=== PATIENT | female | born 1985 | race Caucasian/White ===

== ENCOUNTER 2023-07-02 09:41 | Emergency (ER) | payer OTHER, SELFPAY ==
[2023-07-02 09:49] VITALS: BP 111/91; PULSE 99; TEMP 36.4; O2SAT 98; BMI 23.5
--- NOTE | 2023-07-02 10:04 | CT_ITS ---
The [address] [address] Patient Name: DAMARIS REEVES MRN: [id number] date: 1985 Sex: F Assigned Patient Location: ED.MAIN Current Patient Location: Accession/Order Number: [id number] Exam Date: 07/02/2023 11:31 Report Date: 07/02/2023 11:51 At the request of: PAZ OKEEFE Procedure: CT head/brain wo con EXAM: CT head/brain wo con HISTORY: vertigo COMPARISON: None. TECHNIQUE: Axial noncontrast CT imaging of the head was performed with coronal and sagittal reformats. This CT exam was performed using one or more of the following dose reduction techniques: Automated exposure control, adjustment of the MA and/or kV according to patient size, or use of iterative reconstruction technique. FINDINGS: Calvarium/skull base: No evidence of acute fracture or destructive lesion. Mastoids and middle ears demonstrate no substantial mucosal disease. Paranasal sinuses: No air fluid levels. Brain: No acute intracranial hemorrhage. No acute large vascular territory infarct. No mass lesion or mass effect. No hydrocephalus. CT/CT head/brain wo con IMPRESSION: No acute intracranial process. Electronically authenticated by: SHADI GRUBER Date: 07/02/2023 11:51
[2023-07-02] MEDS: MECLIZINE HCL 12.5 MG TABLET 25 MG PO (10:21)
--- NOTE | 2023-07-02 10:21 | ED.GENADUL1 ---
HPI HPI - General Adult General Chief complaint: Dizziness Stated complaint: Dizziness VERTIGO Time Seen by Provider: 07/02/23 09:49 Source: patient Mode of arrival: walk-in Limitations: no limitations History of Present Illness HPI narrative: The patient presented to the ER complaining of almost 5 days history of having symptoms of dizziness whenever she turns her head to the left side, she mentioned that she did not have any recent illness but her had some viral illness recently, she denies any ear pain runny nose coughing or sneezing, she was able to function with no difficulty for the last few days but today she has been feeling the dizziness is more than usual. She noted also that she had more bleeding in her menstruation this month and she was worried maybe that is affecting her symptoms. The patient denies any other complaint of weakness numbness tingling headache or any other concerns. Although the patient mentioned that she did had earlier headache in the occipital area Related Data Previous Rx's ?Medication ?Instructions ?Recorded meclizine 25 mg tablet 25 mg PO TID PRN motion sickness 07/02/23 #20 tabs Allergies Allergy/AdvReac Type Severity Reaction Status Date / Time No Known Drug Allergies Allergy Verified 07/02/23 09:49 Opioid HPI Opioid Management Most Recent Opioid Data: No Data to Display Review of Systems ROS Status of ROS 10 or more systems reviewed and unremarkable except as noted in history and below Exam Narrative Exam Narrative: Nurses notes and vital signs reviewed and patient is not hypoxic. General: Well-appearing and in no apparent distress. Skin: Warm, dry, no pallor noted. No rash. Head: Normocephalic, atraumatic. Neck: Supple, non-tender. Eye: Pupils are equal, round and EOMI. No scleral icterus. Ears, Nose, Mouth, and Throat: TM are clear, no nasal mucosal hypertrophy. Oral mucosa is moist, no posterior oropharynx erythema, uvula is mid-line Cardiovascular: Regular Rate and Rhythm without murmur, gallop or rub. Respiratory: No accessory muscle use or respiratory distress. Lungs are clear to auscultation, no wheezing, rales or rhonchi Chest Wall: no tenderness Back: No midline thoracic or lumbar vertebral tenderness. No CVA tenderness Musculoskeletal: normal ROM, no calf or popliteal tenderness, no lower extremity edema/swelling GI: Abdomen is soft, non-distended. Normal bowel sounds. No masses appreciated. No tenderness to palpation. No rebound, guarding, or rigidity noted. Neurological: A&O x4. No cranial nerve dysfunction observed. No truncal ataxia. Moves all extremities. Sensation intact. Psychiatric: Cooperative and interactive. Normal mood and affect. Constitutional Vital Signs, click to edit/add: Last Vital Signs Temp 97.6 F 07/02/23 09:49 Pulse 99 H 07/02/23 09:49 Resp 14 07/02/23 09:49 BP 111/91 07/02/23 09:49 Pulse Ox 98 07/02/23 09:49 O2 Del Method Room Air 07/02/23 09:49 Course Vital Signs Vital signs: Vital Signs Temperature 97.6 F 07/02/23 09:49 Pulse Rate 99 H 07/02/23 09:49 Respiratory Rate 14 07/02/23 09:49 Blood Pressure 111/91 07/02/23 09:49 Pulse Oximetry 98 07/02/23 09:49 Oxygen Delivery Method Room Air 07/02/23 09:49 Temperature 97.6 F 07/02/23 09:49 Pulse Rate 99 H 07/02/23 09:49 Respiratory Rate 14 07/02/23 09:49 Blood Pressure 111/91 07/02/23 09:49 Pulse Oximetry 98 07/02/23 09:49 Oxygen Delivery Method Room Air 07/02/23 09:49 Medical Decision Making [facility] Narrative Medical decision making narrative: The patient presentation is mostly secondary to vertigo CBC chemistry showed no acute pathology as well as a negative CT head The patient presentation is mostly secondary to benign positional vertigo she is feeling better after initial treatment Discharge home with meclizine as well as instruction to come back to the ER in case of worsening of her symptoms The patient is to follow up with primary care physician in next 2-3 days or to return to the emergency department should any of the signs or symptoms worsen or new symptoms develop. The patient agrees with the following Diagnosis and Treatment plan and the patient will be discharged home. Lab Data Labs: Lab Results 07/02/23 Range/Units 10:15 WBC 6.3 (4.0-11.0) 10^3/uL RBC 4.80 (4.20-5.40) 10^6/uL Hgb 14.1 (12.0-16.0) g/dL Hct 43.2 (36.0-48.0) % MCV 90.0 (81.0-99.0) fL MCH 29.4 (26.7-34.0) pg MCHC 32.6 (29.9-35.2) g/dL RDW 12.5 (11.0-15.0) % Plt Count 292 (150-450) 10^3/uL MPV 9.7 (9.5-13.5) fL Neut % (Auto) 64.7 (43.0-75.0) % Lymph % (Auto) 27.6 (20.5-60.0) % [place] % (Auto) 5.1 (1.7-12.0) % Eos % (Auto) 1.8 (0.9-7.0) % Baso % (Auto) 0.3 (0.2-2.0) % Neut # (Auto) 4.1 (1.4-6.5) 10^3/uL Lymph # (Auto) 1.7 (1.2-3.8) 10^3/uL [place] # (Auto) 0.3 (0.3-0.8) 10^3/uL Eos # (Auto) 0.1 (0.0-0.7) 10^3/uL Baso # (Auto) 0.0 (0.0-0.1) 10^3/uL Abs Immat Gran (auto) 0.03 (0.00-0.03) 10^3/uL Imm/Tot Granulo (auto) 0.5 (0.0-0.5) % Sodium 139 (136-145) mmol/L Potassium 3.9 (3.5-5.1) mmol/L Chloride 101 (98-107) mmol/L Carbon Dioxide 26.9 (21.0-32.0) mmol/L Anion Gap 15.0 BUN 14.0 (7.0-18.0) mg/dL Creatinine 1.02 (0.55-1.02) mg/dL Est GFR ( Amer) >60 (>=60) Est GFR (Non-Af Amer) >60 (>=60) BUN/Creatinine Ratio 13.7 Glucose 93 (74-106) mg/dL Calcium 9.7 (8.5-10.1) mg/dL Total Bilirubin 0.4 (0.2-1.0) mg/dL AST 17 (15-37) U/L ALT 25 (14-59) U/L Alkaline Phosphatase 74 (46-116) U/L Total Protein 8.2 (6.4-8.2) g/dL Albumin 4.2 (3.4-5.0) g/dL Globulin 4.0 g/dL Albumin/Globulin Ratio 1.0 Serum HCG, Qual Negative (NEGATIVE) Discharge Plan Discharge Stand Alone Forms: Portal Instructions Chief Complaint: Dizziness Clinical Impression: Benign paroxysmal positional vertigo Qualifiers: Laterality: left Qualified Code(s): H81.12 - Benign paroxysmal vertigo, left ear Patient Disposition: Home, Self-Care Time of Disposition Decision: 12:12 Condition: Good Prescriptions / Home Meds: New meclizine 25 mg tablet 25 mg PO TID PRN (Reason: motion sickness) Qty: 20 0RF Print Language: Faroese Instructions: Benign Paroxysmal Positional Vertigo (DC) Referrals: GREY MIRANDA [Primary Care Provider] - 1 week
[2023-07-02] MEDS: 0.9 % SODIUM CHLORIDE 1,000 ML 1000 ML IV (10:23)
[2023-07-02 10:31] LABS: Basophils Percent Auto 0.3 % (0.2-2.0); Eosinophils Absolute Auto 0.1 10^3/uL (0.0-0.7); Eosinophils Percent Auto 1.8 % (0.9-7.0); Hematocrit 43.2 % (36.0-48.0); Hemoglobin 14.1 g/dL (12.0-16.0); Immature Granulocytes Abs Auto 0.03 10^3/uL (0.00-0.03); Immature Granulocytes Pct Auto 0.5 % (0.0-0.5); Lymphocytes Absolute Auto 1.7 10^3/uL (1.2-3.8); Lymphocytes Percent Auto 27.6 % (20.5-60.0); Mean Corpuscular HGB Conc 32.6 g/dL (29.9-35.2); Mean Corpuscular Hemoglobin 29.4 pg (26.7-34.0); Mean Platelet Volume 9.7 fL (9.5-13.5); Monocytes Absolute Auto 0.3 10^3/uL (0.3-0.8); Monocytes Percent Auto 5.1 % (1.7-12.0); Neutrophils Absolute Auto 4.1 10^3/uL (1.4-6.5); Neutrophils Percent Auto 64.7 % (43.0-75.0); Platelet Count 292 10^3/uL (150-450); Red Cell Distribution Width 12.5 % (11.0-15.0); White Blood Count 6.3 10^3/uL (4.0-11.0)
[2023-07-02 10:52] LABS: Alanine Aminotransferase 25 U/L (14-59); Albumin Level 4.2 g/dL (3.4-5.0); Alkaline Phosphatase 74 U/L (46-116); Aspartate Amino Transferase 17 U/L (15-37); BUN Creatinine Ratio 13.7; Bilirubin Total 0.4 mg/dL (0.2-1.0); Calcium 9.7 mg/dL (8.5-10.1); Carbon Dioxide 26.9 mmol/L (21.0-32.0); Chloride 101 mmol/L (98-107); Estimated GFR (African America >60 (>=60); Estimated GFR (Non-African Ame >60 (>=60); Glucose 93 mg/dL (74-106); Potassium 3.9 mmol/L (3.5-5.1); Sodium 139 mmol/L (136-145); Total Protein 8.2 g/dL (6.4-8.2)
[2023-07-02 11:29] LABS: HCG Qualitative NEGATIVE (NEGATIVE)
== END 2023-07-02 12:21 | disposition home or self-care (01) ==
PROVIDERS: Emergency Provider Emergency Medicine; PCP Family Medicine
DX: H81.12 Benign paroxysmal vertigo, left ear (principal)
CPT/HCPCS: 36415; 70450; 80053; 84703; 85025; 99284